=== PATIENT | male | born 1965 | race Caucasian/White ===

== ENCOUNTER 2017-03-15 16:36 | Emergency (ER) | payer BC ==
[~2017-03-15] VITALS: Ht 177.8 cm; Wt 75.0 kg
[2017-03-15 16:40] VITALS: BP 177/94; PULSE 84; RESP 16; TEMP 98.1; O2SAT 99
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
[2017-03-16] MEDS ORDERED: ROBA500T PO (09:49)
[2017-03-16] MEDS ORDERED: IBUP800T23 PO (09:49)
== END 2017-03-15 18:39 | disposition left against medical advice (07) ==
LOC: NED 16:36
DX: M25.562 Pain in left knee (principal); M25.512 Pain in left shoulder; M25.511 Pain in right shoulder; M54.2 Cervicalgia; Z53.21 Procedure and treatment not carried out due to patient leaving prior to being seen by health care provider
CPT/HCPCS: 99281

== ENCOUNTER 2017-03-16 08:22 | Emergency (ER) | payer OTHER, BC ==
[~2017-03-16] VITALS: Ht 177.8 cm; Wt 77.0 kg
[2017-03-16 08:23] VITALS: BP 178/97; PULSE 60; RESP 20; TEMP 98; O2SAT 99
[2017-03-16] MEDS ORDERED: IBUPROFEN 800 MG TAB PO ONE (09:45)
[2017-03-16] MEDS ORDERED: METHOCARBAMOL 500 MG TAB PO ONE (09:45)
[2017-03-16] MEDS ORDERED: ROBA500T PO (09:49)
[2017-03-16] MEDS ORDERED: IBUP800T23 PO (09:49)
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
== END 2017-03-16 11:11 | disposition home or self-care (01) ==
LOC: NEPK 08:22
DX: S89.92XA Unspecified injury of left lower leg, initial encounter (principal); S46.819A Strain of other muscles, fascia and tendons at shoulder and upper arm level, unspecified arm, initial encounter; V89.2XXA Person injured in unspecified motor-vehicle accident, traffic, initial encounter
CPT/HCPCS: 73564; 99283